=== PATIENT | female | born 1995 | race Two or more races ===

== ENCOUNTER 2017-01-21 10:49 | Emergency (ER) | payer MEDICAID ==
[~2017-01-21] VITALS: Ht 170.2 cm; Wt 86.8 kg
[2017-01-21] MEDS ORDERED: ONDANSETRON 2MG/ML, 2ML IVPush ONE (11:30)
[2017-01-21] MEDS ORDERED: SODIUM CHLORIDE FLUSH 10ML SYR IVF ONE (11:30)
[2017-01-21] MEDS ORDERED: DICYCLOMINE 10 MG/ML, 2ML IM ONE (11:30)
[2017-01-21] MEDS ORDERED: SODIUM CHLORIDE 0.9% 1,000ML IVBOLUS ONE (11:30)
[2017-01-21] MEDS ORDERED: ONDANSETRON 2MG/ML, 2ML ONE (11:32)
[2017-01-21 11:43] LABS: HEMATOCRIT 41.9 % (34.6-47.8); HEMOGLOBIN 14.3 g/dL (11.7-16.4); WHITE BLOOD COUNT 11.1 x10^3/uL (3.4-10)
[2017-01-21 11:55] LABS: BLOOD UREA NITROGEN 11 mg/dL (7-18)
[2017-01-21 12:02] LABS: ASPARTATE AMINO TRANSFERASE 28 U/L (15-37)
[2017-01-21] MEDS ORDERED: OMNIPAQUE 350 MG/ML, 100ML BOTTLE ONE (12:35)
[2017-01-21 14:22] VITALS: BP 104/51
== END 2017-01-21 14:24 | disposition home or self-care (01) ==
LOC: ED 12:16
DX: A08.4 Viral intestinal infection, unspecified (principal); Z90.49 Acquired absence of other specified parts of digestive tract
CPT/HCPCS: 36415; 74020; 74177; 80053; 81001; 83690; 84703; 85025; 96361; 96372; 96374; 99285; J0500; J2405; J7030; Q9967

== ENCOUNTER 2017-07-01 17:18 | Emergency (ER) | payer MEDICAID ==
[~2017-07-01] VITALS: Ht 170.2 cm; Wt 88.0 kg
[2017-07-01] MEDS ORDERED: IBUPROFEN 200 MG TABLET PO ONE (18:00)
[2017-07-01 18:13] LABS: RAPID INFLUENZA A Negative (Negative); RAPID INFLUENZA B Negative (Negative)
[2017-07-01 18:40] LABS: ALANINE AMINOTRANSFERASE 54 U/L (12-78); ALBUMIN 3.7 g/dL (3.4-5.0); ANION GAP 11 mmol/L (5-15); CALCIUM 8.5 mg/dL (8.5-10.1); CHLORIDE 104 mmol/L (98-107)
[2017-07-01 18:42] LABS: BASOPHILS % (AUTO) 0 % (0-1); EOSINOPHILS # (AUTO) 0.03 x10^3/uL (0-0.4); EOSINOPHILS % (AUTO) 0 % (1-7); LYMPHOCYTES # (AUTO) 1.01 x10^3/uL (1-3.4); LYMPHOCYTES % (AUTO) 9 % (22-44); MD NO; MEAN CORPUSCULAR HEMOGLOBIN 29.5 pg (27.0-34.8); MEAN CORPUSCULAR HGB CONC 34.2 g/dL (32.4-35.8); MEAN CORPUSCULAR VOLUME 86.3 fL (80-100); MEAN PLATELET VOLUME 9.5 fL (7.4-10.4); MONOCYTES # (AUTO) 0.82 x10^3/uL (0.2-0.8); MONOCYTES % (AUTO) 7 % (2-9); NEUTROPHILS # (AUTO) 9.44 x10^3/uL (1.8-6.8); NEUTROPHILS % (AUTO) 84 % (42-75); PLATELET COUNT 241 x10^3/uL (130-400); RED BLOOD COUNT 4.79 x10^6/uL (3.82-5.3); RED CELL DISTRIBUTION WIDTH 13.4 % (9.6-15.2)
[2017-07-01 18:44] LABS: ALKALINE PHOSPHATASE 106 U/L (45-117); BILIRUBIN,TOTAL 0.8 mg/dL (0.2-1.0)
[2017-07-01] MEDS ORDERED: SODIUM CHLORIDE 0.9% 1,000ML IVBOLUS ONE (19:30)
[2017-07-01] MEDS ORDERED: SODIUM CHLORIDE FLUSH 10ML SYR IVF ONE (19:30)
[2017-07-01] MEDS ORDERED: IBUPROFEN 200 MG TABLET ONE (19:53)
[2017-07-01 20:01] LABS: MICROSCOPIC INDICATED
[2017-07-01 20:04] LABS: CULTURE INDICATED? NO
[2017-07-01 21:08] VITALS: BP 119/56
== END 2017-07-01 21:10 | disposition home or self-care (01) ==
LOC: ED 20:52
DX: H66.92 Otitis media, unspecified, left ear (principal); R11.10 Vomiting, unspecified; B34.9 Viral infection, unspecified; Z90.49 Acquired absence of other specified parts of digestive tract
CPT/HCPCS: 36415; 71046; 80053; 81001; 84703; 85025; 87400; 96360; 99285; J7030

== ENCOUNTER 2019-04-19 19:01 | Emergency (ER) | payer SELFPAY ==
[~2019-04-19] VITALS: Ht 170.2 cm; Wt 81.3 kg
[2019-04-19 19:09] VITALS: BP 125/99
--- NOTE | 2019-04-19 20:21 | NUR ---
pt in gown in [facility]; awaiting erp. pt educated on er process and verbalizes understanding at this time. pt attached to vs monitors. call light is within reach.
--- NOTE | 2019-04-19 22:47 | NUR ---
PT D/C WITH D/C SUMMARY AND SCRIPTS. ALL QUESTIONS ANSWERED. PT AMBULATES TO REGISTRATION DESK WITH STEADY GAIT FOR D/C HOME. PT DENIES ANY OTHER NEEDS PERTAINING TO THIS VISIT.
== END 2019-04-19 22:49 | disposition home or self-care (01) ==
LOC: ED 21:10
DX: B34.9 Viral infection, unspecified (principal); R06.00 Dyspnea, unspecified; F17.200 Nicotine dependence, unspecified, uncomplicated; Z90.49 Acquired absence of other specified parts of digestive tract
CPT/HCPCS: 71046; 93005; 99283; J7512

== ENCOUNTER 2019-09-16 17:38 | Emergency (ER) | payer MEDICAID ==
[~2019-09-16] VITALS: Ht 170.2 cm; Wt 87.2 kg
--- NOTE | 2019-09-16 18:21 | NUR ---
PT HAS CO DYSURIA AND HEMATURIA. DENIES FLANK PAIN. STARTED YESTERDAY.
[2019-09-16] MEDS ORDERED: PHENAZOPYRIDINE 200 MG TABLET PO ONE (18:30)
[2019-09-16] MEDS ORDERED: PHENAZOPYRIDINE 200 MG TABLET ONE (18:35)
--- NOTE | 2019-09-16 18:46 | NUR ---
REPORT TO SHALINI
[2019-09-16 18:47] LABS: MICROSCOPIC INDICATED
--- NOTE | 2019-09-16 18:52 | NUR ---
report from Rogelio JOHNSON. Pt care transferred at this time. pt resting in gurney, NAD, RESP WNL, skin color WNL warm and dry, FCS no SOB, WCTM.
--- NOTE | 2019-09-16 19:35 | NUR ---
Pt resting in gurney, given warm blanket for comfort, NAD, RESP WNL, VSS, skin color WNL warm and dry, waiting on UA results, WCTM.
[2019-09-16 20:16] VITALS: BP 117/79
--- NOTE | 2019-09-16 20:22 | NUR ---
Patient given discharge instructions and they have confirmed that they understand the instructions. Patient ambulatory with steady gait. NAD, VSS, no additional questions at this time.
== END 2019-09-16 20:18 | disposition home or self-care (01) ==
LOC: ED 20:05
DX: N30.01 Acute cystitis with hematuria (principal); F17.200 Nicotine dependence, unspecified, uncomplicated
CPT/HCPCS: 81001; 81025; 87086; 99283

== ENCOUNTER 2020-05-30 10:45 | Inpatient (IN) | payer MEDICAID ==
[~2020-05-30] VITALS: Ht 170.2 cm; Wt 96.5 kg
[2020-05-30] MEDS ORDERED: SODIUM CITRATE/CITRIC ACID 30 ML UDC PO PRN (11:30)
[2020-05-30] MEDS ORDERED: OXYTOCIN 30U/ 0.9% NaCL 500ML 500 ML IV PRN (11:30)
[2020-05-30] MEDS ORDERED: FENTANYL PF 100 MCG/2ML IV PRN (11:30)
[2020-05-30] MEDS ORDERED: ONDANSETRON 2MG/ML, 2ML IVPush PRN (11:30)
[2020-05-30] MEDS ORDERED: OXYTOCIN 30U/ 0.9% NaCL 500ML 500 ML IV ONE (11:30)
[2020-05-30] MEDS ORDERED: TERBUTALINE 1 MG/ML, 1ML IVPush PRN (11:30)
[2020-05-30] MEDS ORDERED: TERBUTALINE 1 MG/ML, 1ML SQ PRN (11:30)
[2020-05-30 12:22] LABS: BASOPHILS % (AUTO) 0 % (0-1); EOSINOPHILS % (AUTO) 0 % (1-7); LYMPHOCYTES % (AUTO) 18 % (22-44); MEAN CORPUSCULAR HEMOGLOBIN 29.1 pg (27.0-34.8); MEAN CORPUSCULAR HGB CONC 33.6 g/dL (32.4-35.8); MEAN PLATELET VOLUME 9.7 fL (7.4-10.4); MONOCYTES % (AUTO) 6 % (2-9); NEUTROPHILS % (AUTO) 76 % (42-75); PLATELET COUNT 187 x10^3/uL (130-400); RED BLOOD COUNT 3.91 x10^6/uL (3.82-5.3); RED CELL DISTRIBUTION WIDTH 15.3 % (9.6-15.2)
[2020-05-30 12:29] LABS: MD NO
[2020-05-30] MEDS ORDERED: MISOPROSTOL 200 MCG TABLET ONE (12:47)
[2020-05-30] MEDS ORDERED: NEWBORN KIT ONE (12:47)
[2020-05-30] MEDS ORDERED: LIDOCAINE 1%, 20ML ONE (12:47)
[2020-05-30] MEDS ORDERED: OXYTOCIN 30U/ 0.9% NaCL 500ML 500 ML ONE (12:48)
[2020-05-30 12:59] VITALS: BP 134/84
[2020-05-30] MEDS: LACTATED RINGERS 1,000 ML IV SCH ×2 (13:18→18:39)
[2020-05-30] MEDS ORDERED: FENTANYL PF 100 MCG/2ML ONE ×2 (20:01→21:05)
[2020-05-30] MEDS: FENTANYL PF 100 MCG/2ML IVPush PRN ×2 (20:04→21:09)
[2020-05-30] MEDS ORDERED: IBUPROFEN 600 MG TABLET ONE (22:25)
[2020-05-30] MEDS ORDERED: CALCIUM CARBONATE 500 MG TAB.CHEW PO PRN (22:30)
[2020-05-30] MEDS ORDERED: METHYLERGONOVINE 0.2 MG/ML IM PRN (22:30)
[2020-05-30] MEDS ORDERED: ACETAMINOPHEN 325 MG TABLET PO PRN ×2 (22:30)
[2020-05-30] MEDS ORDERED: SIMETHICONE 80 MG CHEW TAB PO PRN (22:30)
[2020-05-30] MEDS: OXYTOCIN 30U/ 0.9% NaCL 500ML 500 ML IV SCH (22:30)
[2020-05-30] MEDS ORDERED: IBUPROFEN 800 MG TABLET PO PRN (22:30)
[2020-05-30] MEDS ORDERED: CARBOPROST TROMETHAMINE 250 MCG/ML, 1ML IM PRN (22:30)
[2020-05-30] MEDS ORDERED: ONDANSETRON 2MG/ML, 2ML IV PRN (22:30)
[2020-05-30] MEDS ORDERED: OXYcodone/APAP 5/325MG TABLET PO PRN (22:30)
[2020-05-30] MEDS ORDERED: OXYTOCIN 10 UNITS/ML, 1ML IM PRN (22:30)
[2020-05-30] MEDS: IBUPROFEN 600 MG TABLET PO PRN (22:30)
[2020-05-30] MEDS ORDERED: OXYcodone IR 5MG TABLET PO PRN (22:30)
[2020-05-31 00:20] VITALS: BP 130/74
[2020-05-31 03:30] VITALS: BP 108/67
[2020-05-31] MEDS: LACTATED RINGERS 1,000 ML IV SCH ×3 (03:30→19:30)
[2020-05-31] MEDS: IBUPROFEN 600 MG TABLET PO PRN ×2 (05:54→20:20)
[2020-05-31 06:45] LABS: BASOPHILS % (AUTO) 0 % (0-1); EOSINOPHILS % (AUTO) 0 % (1-7); LYMPHOCYTES % (AUTO) 13 % (22-44); MD NO; MEAN CORPUSCULAR HEMOGLOBIN 29.4 pg (27.0-34.8); MEAN CORPUSCULAR HGB CONC 34.1 g/dL (32.4-35.8); MEAN PLATELET VOLUME 9.4 fL (7.4-10.4); MONOCYTES % (AUTO) 7 % (2-9); NEUTROPHILS % (AUTO) 80 % (42-75); PLATELET COUNT 162 x10^3/uL (130-400); RED BLOOD COUNT 3.59 x10^6/uL (3.82-5.3); RED CELL DISTRIBUTION WIDTH 15.3 % (9.6-15.2)
[2020-05-31 07:50] VITALS: BP 119/77
[2020-05-31] MEDS: OXYTOCIN 30U/ 0.9% NaCL 500ML 500 ML IV SCH ×2 (08:30→17:34)
[2020-05-31] MEDS: PRENATAL VIT/IRON/FA 1 EACH TABLET PO SCH (08:30)
[2020-05-31 15:17] VITALS: BP 128/91
[2020-05-31 19:48] VITALS: BP 117/78
[2020-05-31] MEDS: DOCUSATE 100 MG CAPSULE PO PRN (20:20)
[2020-06-01] MEDS: IBUPROFEN 600 MG TABLET PO PRN ×2 (02:30→10:39)
[2020-06-01] MEDS: LACTATED RINGERS 1,000 ML IV SCH (03:30)
[2020-06-01] MEDS: OXYTOCIN 30U/ 0.9% NaCL 500ML 500 ML IV SCH (04:12)
[2020-06-01] MEDS ORDERED: IBUP-1222 PO (06:44)
[2020-06-01] MEDS ORDERED: OXYC1TAB14 PO (06:44)
[2020-06-01 07:20] VITALS: BP 114/74
[2020-06-01] MEDS: PRENATAL VIT/IRON/FA 1 EACH TABLET PO SCH (08:39)
[2020-06-01] MEDS: DOCUSATE 100 MG CAPSULE PO PRN (08:39)
== END 2020-06-01 13:15 | disposition home or self-care (01) | DRG 807 ==
LOC: LDIP 10:45 → 2NW 05-31 00:10
PROVIDERS: ADMIT Obstetrics & Gynecology; ATTEND Obstetrics & Gynecology
PROC: 3E033VJ Introduction of Other Hormone into Peripheral Vein, Percutaneous Approach (ICD-10-PCS; principal; 2020-05-30)
PROC: 10E0XZZ Delivery of Products of Conception, External Approach (ICD-10-PCS; 2020-05-30)
DX: O62.0 Primary inadequate contractions (principal); Z37.0 Single live birth; Z3A.39 39 weeks gestation of pregnancy; Z20.822 Contact with and (suspected) exposure to COVID-19; Z79.899 Other long term (current) drug therapy
CPT/HCPCS: 36415; 85025; 86592; 86850; 86900; 87635; G0378; J3010; J2590; J7120